=== PATIENT | female | born 1990 ===

== ENCOUNTER 2023-02-27 02:43 | Emergency (ER) | payer MEDICAID, SELFPAY ==
[2023-02-27] VITALS (8 sets, daily range): BP systolic 98–130; BP diastolic 50–76; PULSE 69–80; RESP 16–18; TEMP 36.6–37.1; O2SAT 95–98; BMI 29.0
--- NOTE | ~2023-02-27 | XR_ITS ---
EXAMINATION: XR ANKLE, RIGHT CLINICAL INFORMATION: Right ankle pain and swelling. COMPARISON: None available. TECHNIQUE: AP, lateral, and mortise views of the right ankle. FINDINGS: No acute fracture or dislocation. The ankle mortise is maintained. Small tibiotalar marginal osteophytes. Small plantar calcaneal spur. No lytic or blastic osseous lesion. Circumferential soft tissue swelling, most prominent laterally. XR/XR ankle RT min 3V IMPRESSION: 1. Circumferential soft tissue swelling, most prominent laterally. 2. Mild tibiotalar osteoarthritis. 3. Small plantar calcaneal spur.
--- NOTE | 2023-02-27 06:34 | ED.GENADULT ---
HPI - General Adult General Chief complaint: Skin/Abscess/Foreign Body Stated complaint: Abscess on arm/ ankle pain Time Seen by Provider: 02/27/23 06:33 Source: patient, RN notes reviewed and old records reviewed Mode of arrival: ambulatory Limitations: no limitations History of Present Illness HPI narrative: 32 year old female w/a history of IVDU presenting to the ED complaining of skin abscesses to bilateral arms and painful lump to right ankle x few days. Admits was recently treated for LUE abscess 3 weeks ago at [facility] with Bactrim for 10 days with resolution. States areas of concern today are new. Admits to pain and redness at affected areas. Denies known ankle injury/trauma or fall. Denies fever, chills, SOB, cough, congestion or chest pain. Reports recent drug relapse after 10 months of being sober and is interested in getting help. No other acute concerns at this time. Onset (ago): day(s) Related Data Previous Rx's Medication Instructions Recorded cephalexin 500 mg capsule 500 mg PO QID 7 days #28 caps 02/27/23 doxycycline hyclate 100 mg tablet 100 mg PO BID 7 days #14 tabs 02/27/23 Allergies Allergy/AdvReac Type Severity Reaction Status Date / Time No Known Allergies Allergy Unverified 05/23/20 19:29 [No Known Allergies*] Review of Systems Review of Systems: Constitutional: No Fever, No Chills ENT/Mouth: No Nasal Congestion, No sore throat, No Rhinorrhea Cardiovascular: No Chest Pain, No SOB Respiratory: No Cough No Wheezing Gastrointestinal: No Nausea, No Vomiting, No Diarrhea Musculoskeletal: No joint pain, No Myalgias, No Joint Swelling Skin: +abscesses, No rash Neuro: No Weakness, No Numbness Yes all other systems are reviewed and are negative Constitutional: Constitutional: Reports as per [facility] Past Medical History Attestation statement: The following information was validated with the patient. Source: old records reviewed Social History Social History Alcohol intake: never Smoked in Last 30 Days: Yes Use of substances other than those prescribed or required for medical reasons: Yes Substance Use Type: Heroin Substance Use Frequency: Chronic Longstanding Last Used Substance: Just Prior to Admission Any prior treatment program specific to substance use: Yes Advance Directives: No Advance Directives Information Provided: No Patient : No Physical Exam ED Vital Signs: Vital Signs - 24 hr 02/27/23 03:27 02/27/23 03:54 02/27/23 04:00 Temperature 98.8 F 98.6 F 98.6 F Pulse Rate 70 80 73 Respiratory Rate 16 16 16 Blood Pressure 128/74 127/70 120/70 Pulse Oximetry 97 98 98 Oxygen Delivery Method Room Air Room Air Room Air 02/27/23 06:00 02/27/23 09:10 02/27/23 11:30 Temperature 98.4 F 97.9 F Pulse Rate 75 73 69 Respiratory Rate 18 16 16 Blood Pressure 102/60 98/50 L 110/59 L Pulse Oximetry 98 96 95 Oxygen Delivery Method Room Air Room Air Room Air 02/27/23 14:00 02/27/23 14:21 02/27/23 14:21 Temperature 98.2 F 98.2 F Pulse Rate 72 Respiratory Rate 17 Blood Pressure 130/76 Pulse Oximetry 96 Oxygen Delivery Method Room Air BMI result Body Mass Index 29.0 Const General: cooperative, comfortable, no acute distress, alert and awake Orientation/consciousness: patient oriented x3 Limitations: no limitations HENMT Head: Yes normal to inspection and Yes atraumatic Ears: hearing grossly normal bilaterally General nose exam: Normal external nose present Face and sinus: Yes normal facial exam Eyes General: appearance normal, both eyes and all related structures EOM: EOMs intact bilaterally Neck Neck: Yes normal visual inspection and Yes no meningeal signs Resp Effort & Inspection: normal respiratory effort and no respiratory distress Auscultation: clear to auscultation bilaterally Cardio Rate: regular rate Heart sounds: S1 normal heart sound present and S2 normal heart sound present GI Inspection: Yes normal to inspection Palpation (GI): Soft to palpation, nontender, no guarding and not rigid Skin Other: LUE: erythematous indurated abscess to antecubital region extending distally with warmth. No fluctuance. Not circumferential RUE: 2 small indurated abscesses to antecubital region without fluctuance or pointing. Small surrounding erythema, no warmth No lymphangitis or crepitus General skin exam: erythema and induration Rashes: no rashes Wounds: no wounds Neuro General: patient oriented x3, tone normal, moves all extremities and no meningeal signs Gait exam (Neuro): Normal gait present Extrem Other: Right ankle with mild swelling laterally, with mild tenderness. No erythema/warmth. Full range of motion intact. Neurovascular intact Course Course Course Narrative: XR ankle RT min 3V IMPRESSION: 1. Circumferential soft tissue swelling, most prominent laterally. ? 2. Mild tibiotalar osteoarthritis. ? 3. Small plantar calcaneal spur. > patient was accepted to [place] detox. Will be provided with Lyft from the ED Medications Administered Discontinued Medications Generic Name Dose Route Start Last Admin Trade Name Freq PRN Reason Stop Dose Admin Acetaminophen 650 mg 02/27/23 08:35 02/27/23 09:12 Acetaminophen 325 Mg Tablet PO 02/27/23 08:36 650 mg ONCE ONE Administration Medical Decision Making Medical Decision Making [facility] Narrative: 32 year old female w/a history of IVDU presenting to the ED complaining of skin abscesses to bilateral arms and painful lump to right ankle x few days. On exam, vitals stable, NAD, nontoxic appearing, PE as above with indurated cellulitic abscesses to bilateral antecubital regions. No nailbed hemorrhages or [place] lesions. Abdomen soft and tender, no palpable masses. Concerns for abscess & cellulitus. Concern for ankle sprain. Low suspicion for necrotizing fascitis or infective endocarditis or DVT. Low suspicion for ankle fracture, or septic joint/arthritis Plan: Tox, imaging and give Tylenol for pain management. Care team consult for detox Please refer to course for remaining clinical decision making, interpretation of labs/imaging results, and discussions with consultants and/or family members. Differential Diagnosis Differential Diagnoses: The differential diagnosis associated with the presentation includes As above Admission/Observation Consideration of admission/observation: Escalation of care including admission/observation considered Consult Healthcare Provider Management of the patient was discussed with: Behavioral Health Provider Lab Data [facility] Lab Attestation statement: I reviewed the patient's lab results. [id number]---Patient refused lab draw Labs: Lab Results 02/27/23 Range/Units 07:13 Urine Opiates Screen POSITIVE H (Not Detect) Urine Fentanyl Screen POSITIVE H (Not Detect) Ur Barbiturates Screen Not Detected (Not Detect) Ur Phencyclidine Scrn Not Detected (Not Detect) Ur Amphetamines Screen Not Detected (Not Detect) U Benzodiazepines Scrn Not Detected (Not Detect) Urine Cocaine Screen POSITIVE H (Not Detect) U Marijuana (THC) Screen Not Detected (Not Detect) Radiology Impression Discussion of test interpretation with radiology: I have reviewed the radiologist's reading. External Record Review External record reviewed: Inpatient record, Office record, Outpatient record, Prior outpatient labs, Prior outpatient radiology, Primary care record and Outside ED record Tests considered The following testing was considered but not selected: As above Labs considered however patient refused Prescription Management I considered prescription management with: Pain Medication and Antibiotic Chronic Conditions Patient?s care impacted by: Other Social Determinants Patient?s care significantly limited by Social Determinants of Health including: Inadequate housing, Low income, Alcoholism and drug addiction in family, Problems related to primary support group and Problems related to employment Discharge Plan Discharge Clinical Impression: Abscess of skin or subcutaneous tissue, Cellulitis, Ankle sprain Patient Disposition: Home, Self-Care Instructions: Cellulitis (DC), Abscess (ED) Additional Instructions: Your x-ray shows soft tissue swelling of your ankle as well as some osteoarthritis Ice and elevate You have abscesses and cellulitis of her arms, doxycycline and Keflex are antibiotics please take as prescribed Apply warm compresses If symptoms persist or worsen areas come to pointing or start draining return to the ED Prescriptions: New cephalexin 500 mg capsule 500 mg PO QID 7 Days Qty: 28 0RF doxycycline hyclate 100 mg tablet 100 mg PO BID 7 Days Qty: 14 0RF Referrals: [facility] [Provider Group] [facility] [Outside] Interventions: ED Discharge Assessment Last Done: 02/27/23 14:29 Discharge Date/Time: 02/27/23 14:45
[2023-02-27 07:27] LABS: Amphetamine Screen Urine Not Detected (Not Detect); Barbiturates, Urine Not Detected (Not Detect); Benzodiazepines Screen Urine Not Detected (Not Detect); Cannabinoid Screen Urine Not Detected (Not Detect); Cocaine Screen Urine POSITIVE (Not Detect); Fentanyl, urine POSITIVE (Not Detect); Opiate Screen Urine POSITIVE (Not Detect); Phencyclidine Screen Urine Not Detected (Not Detect)
[2023-02-27] MEDS: Acetaminophen 325 MG TABLET 650 MG PO (09:12)
--- NOTE | 2023-02-27 09:33 | PC.NURSE ---
pt resting quietly, she was medicated for ankle pain. vss, awaiting disposition
--- NOTE | 2023-02-27 10:14 | PC.NURSE ---
pt spoke with oil burner installer lauren, awaiting disposition
--- NOTE | 2023-02-27 10:40 | MHC.RECOVRN ---
Met with pt in ED12 after consult placed to CARE Team for ATS. Pt laying in bed, awake, alert, easily engages in conversation. Familiar with t/w from previous consults. Pt reports having been staying on [address] in [place] x 3 months and returning to the [facility] this past week. Pt returned to the area with the hopes of getting into treatment. Pt presented to the ED to have bilateral arms assessed for possibility of abscesses as well as interest in ATS. Pt reports using 2 grams heroin daily (approx 6 bundles), IV, as well as cocaine, INH, 2 grams daily. Pt is not currently experiencing withdrawal. Educated pt on recent lack of bed availability, pt open to any ATS facility. Bedsearch commenced.
--- NOTE | 2023-02-27 12:14 | PC.NURSE ---
recovery nurse may have secured a bed for the patient at [facility], pt sleeping in naps
--- NOTE | 2023-02-27 13:06 | MHC.RECOVRN ---
[facility] has bed availability, referral currently being reviewed.
== END 2023-02-27 14:45 | disposition home or self-care (01) ==
PROVIDERS: Physician Assistant; Emergency Provider Emergency Medicine
DX: L02.413 Cutaneous abscess of right upper limb (principal); L02.414 Cutaneous abscess of left upper limb; L03.113 Cellulitis of right upper limb; L03.114 Cellulitis of left upper limb; S93.401A Sprain of unspecified ligament of right ankle, initial encounter; X58.XXXA Exposure to other specified factors, initial encounter; F19.90 Other psychoactive substance use, unspecified, uncomplicated; Y93.9 Activity, unspecified; Y92.9 Unspecified place or not applicable; Y99.9 Unspecified external cause status
CPT/HCPCS: 73610; 80307; 99284